=== PATIENT | male | born 1950 | race Caucasian/White ===

== ENCOUNTER → 2016-07-20 | Outpatient (CLI) | payer OTHER ==
[~2016-07-20] MED LIST: GADOBUTROL 10 ML VIAL IVP ONE
== END ==
LOC: FIMAGING 10:13
PROVIDERS: ATTEND Physician Assistant
DX: M51.26 Other intervertebral disc displacement, lumbar region (principal); Z98.1 Arthrodesis status; M43.16 Spondylolisthesis, lumbar region
CPT/HCPCS: 72158; A9585

== ENCOUNTER → 2016-09-24 | Outpatient (CLI) | payer OTHER | LOC: FLAB 10:36 | PROVIDERS: ATTEND Physician Assistant | DX: Z09 Encounter for follow-up examination after completed treatment for conditions other than malignant neoplasm (principal); Z98.1 Arthrodesis status; M41.86 Other forms of scoliosis, lumbar region; M51.35 Other intervertebral disc degeneration, thoracolumbar region ==

== ENCOUNTER → 2016-11-07 | Outpatient (CLI) | payer OTHER | LOC: CIMAGING 13:11 | PROVIDERS: ATTEND Physician Assistant | DX: T84.226A Displacement of internal fixation device of vertebrae, initial encounter (principal); M51.36 Other intervertebral disc degeneration, lumbar region; M48.06 Spinal stenosis, lumbar region; M48.07 Spinal stenosis, lumbosacral region | CPT/HCPCS: 72131-PO ==